=== PATIENT | female | born 1990 | race Hispanic/Latino ===

== ENCOUNTER 2025-08-17 18:06 | Emergency (ER) | payer OTHER, SELFPAY ==
[2025-08-17 18:08] VITALS: BP 159/87
[2025-08-17 20:14] VITALS: BMI 37.1
[2025-08-17] MEDS: DUONEB 3 ML INH (21:45)
[2025-08-17 22:09] LABS: Hematocrit 31.0 % (37.0-47.0); Hemoglobin 10.8 g/dL (12.0-16.0); Mean Corp Hgb Conc. 34.8 g/dL (33.0-37.0); Mean Corpuscular Volume 84.2 fL (81.0-99.0); Nucleated Red Blood Cells % 0 %; Platelet Count 194 10^3/uL (130-400); Red Cell Dist. Width 13.2 % (11.5-14.5)
[2025-08-17 22:10] LABS: COVID-19 Antigen Negative (Negative)
[2025-08-17 22:24] LABS: HCG, Serum Qualitative Screen Negative
[2025-08-17 22:29] LABS: ALT (SGPT) 21 U/L (0-35); AST (SGOT) 22 U/L (14-36); Albumin 3.9 g/dl (3.5-5.0); Alkaline Phosphatase 102 U/L (38-126); Blood Urea Nitrogen 53 mg/dl (7-17); Calcium 10.3 mg/dl (8.4-10.2); Carbon Dioxide 23 mmol/L (22-30); Chloride 95 mmol/L (98-107); Glucose 74 mg/dl (70-99); Potassium 3.7 mmol/L (3.5-5.1); Sodium 128 mmol/L (135-145); Total Protein 6.4 g/dl (6.3-8.2)
[2025-08-17 22:42] LABS: Estimated Creatinine Clearance 5 ml/min; eGFR 2.45
--- NOTE | 2025-08-17 23:42 | ED.GENMED ---
History of Present Illness
General
Chief Complaint: Cough
Source: patient
Exam Limitations: none
Time Seen by Provider: 08/17/25 21:19
Nursing documentation reviewed up to this point in time: agreed with
History of Present Illness
History of Present Illness:
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 She states her cough initially started back in April after she had COVID. She describes a persistent, dry cough
that has been keeping her awake at night. It seems to be worsening in intensity and now she has had a few episodes of posttussive vomiting.
She was seen at [facility] for this cough approximately 1-2 months ago and was admitted for anemia however they reportedly did not do any testing regarding cough.
Patient denies any fevers or chills. No hemoptysis. No chest pain or shortness of breath. No abdominal pain.
She is fully vaccinated. No known sick contacts.
She receives peritoneal dialysis 6 days a week. Her baseline creatinine is around 15.
Review of Systems
Review of Systems
Allergies reviewed?: Yes
All Other Systems: ROS reviewed and negative except as documented in HPI and ROS
Phy Exam
Physical Exam
Physical Exam:
Vitals: Hypertensive, otherwise vital signs stable. Afebrile
General: Patient is well appearing, no acute distress. Nontoxic appearing
Skin: Warm and dry, no rashes or lesions
Head: Normocephalic, atraumatic
Eyes: Sclera nonicteric.
Throat: Posterior pharynx mildly erythematous. No tonsillar edema or exudates. Uvula midline. Protecting airway
Neck: Normal ROM, no cervical spine tenderness, no meningismus
Cardiac: Regular rate and rhythm, no murmurs.
Pulm: Normal respiratory effort. Lungs clear bilaterally. Frequent cough.
Abdomen: No abdominal tenderness.
Extremities: No evidence of cyanosis or edema
Neuro: AAOx3. Grossly intact.
Psychiatric: Normal affect.
Course
Orders/Labs/Results
Orders:
Orders
08/17/25 19:55
Chest [CR Chest - 2 Views ] Urgent
Comment:
Reason For Exam: cough
08/17/25 21:36
Ipratropium/Albuterol Sulfate [Duoneb] 3 ml INH R NOW STA
08/17/25 21:37
Test Result ONCE
08/17/25 21:49
COVID-19 Antigen Urgent
Source: Nasal Swab
Complete Blood Count/With Diff Urgent
Comprehensive Metabolic Panel Urgent
HCG, Serum Qualitative Screen Urgent
Influenza A+B Rapid Molecular Urgent
LORE Source: Nasal Swab
Specimen Description:
Abnormal Lab Results
08/17/25
21:49
RBC 3.68 L 10^6/uL
(4.20-5.40)
Hgb 10.8 L g/dL
(12.0-16.0)
Hct 31.0 L %
(37.0-47.0)
Sodium 128 L mmol/L
(135-145)
Chloride 95 L mmol/L
(98-107)
BUN 53 H mg/dl
(7-17)
Creatinine 17.3 H* mg/dL
(0.6-1.0)
Calcium 10.3 H mg/dl
(8.4-10.2)
08/17/25 21:49
08/17/25 21:49
Vital Signs
Initial and Last Documented VS:
Initial Vital Signs
Temp Pulse Resp BP Pulse Ox
98.1 F 76 16 159/87 99
08/17/25 18:08 08/17/25 18:08 08/17/25 18:08 08/17/25 18:08 08/17/25 18:08
Last Documented Vital Signs
Temp Pulse Resp BP Pulse Ox
98.1 F 76 16 159/87 99
08/17/25 18:08 08/17/25 18:08 08/17/25 18:08 08/17/25 18:08 08/17/25 23:45
MDM/Problems Addressed
Differential Diagnosis Includes:
Not limited to: Viral illness, bronchitis, pneumonia, reactive airway disease, GERD, malignancy, etc.
MDM/Problems Addressed:
The patient is a 35-year-old female presenting to the ED with a 4 -month history of persistent cough which began following a COVID-19 infection. She denies associated symptoms such as fever, shortness of breath, chest pain, or fatigue. No hemoptysis
or recent travel.
On exam, the patient appears well, nontoxic and in no acute distress. Lungs are clear to auscultation bilaterally with frequent nonproductive cough. No wheezing, rales, or rhonchi. No signs of respiratory distress. Oxygen saturation is within normal
limits on room air.
Labs reveal mild anemia, hyponatremia (Na 126), chronic and consistent with recent outpatient values, chronic renal failure, stage 5, on peritoneal dialysis. Creatinine is elevated but stable (typically 15�16 for this patient). No leukocytosis or
signs of acute infection. CXR obtained in the ED shows no evidence of pneumonia, effusion, or acute infiltrates.
Differential for persistent cough includes: Post-viral reactive airway disease, GERD-associated cough, postnasal drip, less likely infectious etiology given duration and lack of systemic symptoms
She reports some symptomatic relief after albuterol nebulizer in the ED, supporting a possible reactive airway component. Given the chronicity and absence of concerning findings, there is no indication for antibiotics at this time.
Will plan to discharged with albuterol inhaler for symptomatic relief and short course of steroids. Advised pulmonary follow-up for further evaluation and consideration of additional imaging as needed. Return precautions reviewed, including
worsening symptoms, shortness of breath, fever, or hemoptysis. Patient is stable for discharge.
Chronic conditions affecting care:
CKD on peritoneal dialysis
Acute Exacerbation and/or Progression of Chronic Illness:
N/A
*Radiology
Radiology exam reviewed: preliminary read by ED provider (Chest x-ray reviewed by me-no acute findings)
*Pulse Oximetry
SaO2: 99
Oxygen Mode of Delivery: Room air
Patient hypoxic: no
*EKG
Interpreted by ED Provider?: NA
*Hat Mender Interpretation
Rate: Hat Mender- N/A
*Critical Care Note
Total Time (30-74mins, 75-104mins- exclusive of procedures): Not Applicable
ED Attending Note
-
Portions of this chart may have been created with voice recognition software.� Occasional wrong word or��sound alike� substitutions may have occurred due to the inherent limitations of voice recognition software.
Discharge Plan
Departure
Patient Disposition: Home (Routine Discharge)
Date of Disposition: 08/17/25
Time of Disposition: 22:53
Patient with high blood pressure during this ER visit?: Yes
Condition: Good
Covid-19: Negative COVID-19
Discharge Problem:
Chronic cough
Instructions: Cough, Adult (DC), BLOOD PRESSURE
Prescriptions:
New
albuterol sulfate [Ventolin HFA] 90 mcg/actuation HFA aerosol inhaler
1 inh inhalation Q6H PRN (Reason: shortness of breath or wheezing) Qty: 6.7 0RF
methylprednisolone 4 mg tablets,dose pack
See Rx Instructions .ROUTE .COMPLEX Qty: 21 0RF
Rx Instructions:
for 6 days
No Action
insulin glargine [Lantus U-100 Insulin] 100 unit/mL Solution
20 unit SC DAILY
Mounjaro 7.5 mg/0.5 mL Pen Injector
7.5 mg SC QWEEK
sertraline [Zoloft] 100 mg Tablet
100 mg PO DAILY
Referrals:
Hay Jacob MD [Active, Pulmonary Medicine] - Next open appointment
Luci Gutierrez MD [Family Provider, Internal Medicine]
Activity Restrictions/Additional Instructions:
RETURN TO THE EMERGENCY DEPARTMENT WITH ANY FEVER, CHILLS, PRODUCTIVE COUGH, BLOODY SPUTUM, CHEST PAIN OR SHORTNESS OF BREATH/DIFFICULTY BREATHING, WORSENING OF CURRENT SYMPTOMS, OR ANY OTHER CONCERNS
- As discussed�your lab work showed mild anemia with a hemoglobin of 10.8. Your sodium was low at 128 and your creatinine was significantly elevated at 17.3. 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
- A prescription for an albuterol inhaler has been sent to your pharmacy which you can take as needed for cough. A short course of steroids was also sent to your pharmacy.
- Continue to take your ropinirole as needed for restless leg.
- Follow-up with pulmonology for further evaluation. You may require further imaging if symptoms persist.
Monitor your symptoms closely and return to the emergency department with any acute/new symptoms or any signs of infection.
Interventions
Interventions:
*Risk Screen - Suicide Last Done: 08/17/25 18:08
*Neglect/Abuse Screening Last Done: 08/17/25 18:08
*ED- Fall Risk Assessment Last Done: 08/17/25 18:08
*Nursing Disposition Last Done: 08/17/25 23:16
ED- Pulmonary Assessment Last Done: 08/17/25 20:14
Discharge Date and Time
Discharge Date/Time: 08/17/25 23:17
Print Language: PASHTO
== END 2025-08-17 23:17 | disposition home or self-care (01) ==
LOC: EMR 18:06
PROVIDERS: Physician Assistant; EMERGENCY PHYSICIAN Emergency Medicine; FAMILY PHYSICIAN Student in an Organized Health Care Education/Training Program
DX: R05.3 Chronic cough (principal); D64.9 Anemia, unspecified; E87.1 Hypo-osmolality and hyponatremia; R03.0 Elevated blood-pressure reading, without diagnosis of hypertension; N18.6 End stage renal disease; Z99.2 Dependence on renal dialysis; Z86.16 Personal history of COVID-19
CPT/HCPCS: 99283; 94640; 71046; 80053; 84703; 85025; 87502; 87811